=== PATIENT | female | born 1975 | race Caucasian/White ===

== ENCOUNTER 2024-12-05 14:15 | Emergency (ER) | payer MEDICAID, SELFPAY ==
--- NOTE | 2024-12-05 | XR_ITS ---
Examination: CT abdomen with intravenous contrast CT pelvis with intravenous contrast 2-D coronal reconstructions 2-D sagittal reconstructions Date and time of exam:December 12 at 1814 hrs. Indications: Rectal bleeding beginning 4 days ago. Comparison: 08/10/2024. CTDI: vol (mGy) 11.8 DLP: (mGycm) 661 Technique: Multiple axial sections of the abdomen and pelvis have been obtained. 64 slice high-resolution scanner used. 3 mm axial sections have been obtained, post intravenous injection 60 cc [id number] 2-D sagittal, coronal reconstructions obtained. Low dose protocols were performed. One or more of the following dose reduction techniques were used; automated exposure control, adjustment of the mA and/or KV according to patient size, use of iterative reconstruction technique. Findings: No focal liver or splenic lesion Absent gallbladder No pancreatic or adrenal mass Bilateral extrarenal pelvis, no hydronephrosis or ureteral calculi 4 mm fat-containing umbilical hernia Normal appendix No diverticulitis Nonspecific enteritis There is wall thickening and hyperemia involving the rectosigmoid colon, for instance axial image 181 as well as significant rectal thickening, nonspecific colitis and proctitis pattern The cervix, axial image 195, is abnormally prominent Urinary bladder contracted Moderate osteopenia Impression: Nonspecific significant colitis pattern rectosigmoid colon Prominent proctitis pattern, underlying rectal tumor not excluded, recommend direct inspection Abnormally prominent cervix, recommend transabdominal transvaginal pelvic sonography follow-up
[2024-12-05 14:17] VITALS: BMI 36.6
[2024-12-05 14:32] VITALS: BP 127/82; PULSE 114; RESP 20; TEMP 36.6; O2SAT 99
--- NOTE | 2024-12-05 14:40 | PD.EDRME ---
Rapid Medical Screening Exam RME Arrival date/time: 12/05/24 14:15 49-year-old female presents with complaints of rectal bleeding pt does have of hemorrhoids Chief Complaint: General Adult/Misc Complain Vital signs: Vital Signs Temperature 97.8 F 12/05/24 14:32 Pulse Rate 114 H 12/05/24 14:32 Respiratory Rate 20 12/05/24 14:32 Blood Pressure 127/82 12/05/24 14:32 Pulse Oximetry (%) 99 12/05/24 14:32 Oxygen Delivery Method Room Air 12/05/24 14:32
[2024-12-05 15:10] LABS: Collection Type, Urine Clean Catch
--- NOTE | 2024-12-05 15:12 | PD.EDADULT ---
ED General RME/HPI General Chief complaint: General Adult/Misc Complain Stated complaint: RECTAL PAIN AND BLEEDING Time Seen by Provider: 12/05/24 18:26 Arrival date/time: 12/05/24 14:15 RME / HPI RME / HPI narrative: 12/05/24 14:15 49-year-old female presents with complaints of rectal bleeding pt does have of hemorrhoids DR. IRBY MAIN ED EVALUATION: 49 year old female presents to the Emergency Department with complaint of rectal pain for 3 weeks and bleeding for 1 week. Symptoms are moderate. Just finished a 7-day hemorrhoid treatment. Denies any other symptoms at this time. Related Data Previous Rx's ?Medication ?Instructions ?Recorded docusate sodium 100 mg capsule 100 mg PO BID #40 caps 01/21/24 (Colace) hydrocodone 5 mg-acetaminophen 325 1 tab PO Q6H PRN pain (scale score 01/21/24 mg tablet 7-10) #20 tabs ibuprofen 600 mg tablet 600 mg PO Q8H PRN pain (scale 01/21/24 score 4-6) #15 tabs tamsulosin 0.4 mg capsule (Flomax) 0.4 mg PO QDAY #10 caps 08/10/24 hydrocortisone 1 %-pramoxine 1 % 1 applic UT QID PRN hemorrhoids 12/05/24 rectal foam (Proctofoam HC) #10 grams Allergies Allergy/AdvReac Type Severity Reaction Status Date / Time TAPES Allergy Severe Hives Uncoded 12/05/24 14:17 Review of Systems Review of Systems Systems Reviewed: All systems reviewed, normal except as documented Narrative Review of Systems: GEN: No fever, no chills, no weight loss EYES: No discharge, no visual changes, no pain HEENT: No ear pain, no congestion, no sore throat PULM: No shortness of breath, no cough, no congestion CV: No chest pain, no dyspnea on exertion, no palpitations GI: No nausea, no vomiting, no diarrhea, no pain, no constipation + rectal pain for 3 weeks and bleeding : No frequency, no urgency and no dysuria MUSC/SKEL: No joint pain, no back pain SKIN: No rash PSYCH: No hallucinations, no depression HEME/LYMPH: No easy bleeding or bruising tendencies NEURO: No weakness, no headache Past Medical History Past Medical History NEUROLOGIC: Negative Neurological Disorders, Seizures or Migraine CARDIAC: Negative Cardiac Disorders, Congestive Heart Failure or Hypertension RESPIRATORY: Negative Chronic Obstructive Pulmonary Disease (COPD) GASTROINTESTINAL: Positive Gastrointestinal Disorders, Hepatitis (C treated), Gastroesophageal Reflux Disease and Obesity; Negative Cirrhosis GENITOURINARY: Negative Genitourinary Disorders or Renal Disease REPRODUCTIVE: Positive Gonorrhea (clamydia) and Previous Pregnancies ([id number]) MUSCULOSKELETAL: Positive Musculoskeletal Disorders (bone spur right heel) and Fractures (collar bone) ENDOCRINE: Negative Endocrine Disorders, Diabetes Mellitus Type 1, Diabetes Mellitus Type 2 or Hypothyroidism HEMATOLOGIC: Negative Blood Disorders or Anemia PSYCHO/SOCIAL: Negative Depression or Anxiety OTHER HISTORY: Positive Hospitalization (staph infection,); Negative Autoimmune Disease, Shingles, Blood Transfusions, Blood Transfusion Reaction, Anesthesia Reactions, MRSA or Cancer Family History FAMILY HISTORY: Positive Family Respiratory Disorders, Family Cardiac Disorders and Family Surgery; Negative Family Psychiatric Problems, Family Gastrointestinal Problems, Family Cancer or Family Anesthesia Reaction Surgical History SURGICAL: Positive Lumpectomy (Right breast), Tubal Ligation and Section (x3) Social History SMOKING STATUS: Never smoker SUBSTANCE USE: does not use ALCOHOL: Never ED Exam Narrative Physical exam: GENERAL APPEARANCE: alert and oriented x 4, well-developed, well-nourished, no acute distress VITALS: All vitals were reviewed and the pulse ox is 99% on room air, which is normal according to my interpretation. HEENT: Normocephalic, atraumatic; pupils equal, round, reactive to light; EOMI; mucous membranes pink, moist; oropharynx clear NECK: Supple LUNGS: CTABL; no wheezes, no rales, no rhonchi HEART: Regular rate, regular rhythm; normal S1, S2; no murmurs ABDOMEN: non distended; normal BS; there is some tenderness in the left lower quadrant area, but no guarding, no rebound; no masses, no organomegaly, no hernia : External hemorrhoids, nonthrombosed; internal hemorrhoids, nonthrombosed; fissure at 12 o'clock. BACK: no CVA tenderness EXTREMITIES: atraumatic; no edema NEUROLOGIC: awake; alert and oriented x4; cranial nerves II-XII grossly intact; no focal sensory or motor deficits PSYCHIATRIC: appropriate mood and affect SKIN: warm, dry, normal color; no rashes Course Course Course Narrative: 1800: Patient was signed out to Dr. Conde. Past medical, surgical, social and family history reviewed. Vitals and home medications reviewed. Results and treatment plan discussed. They will assume the care of the patient at this time and will follow the patient, pending abdomen/pelvis CT, remainder of labs, and final disposition. Quality Measures none Orders Category Date Time Status CT Screening NOW Care 12/05/24 15:[address] abdomen pelvis w con Stat Exams 12/05/24 Completed CBC Stat Lab 12/05/24 14:49 Completed Comprehensive Metabolic Panel Stat Lab 12/05/24 14:49 Completed HCG Qualitative,Urine Stat Lab 12/05/24 15:02 Completed Lipase Stat Lab 12/05/24 14:49 Completed PT [Prothrombin Time with INR] Stat Lab 12/05/24 14:49 Completed PTT [Partial Thromboplastin Time] Stat Lab 12/05/24 14:49 Completed UA, C/S IF [Urinalysis, C/S if Indicated] Stat Lab 12/05/24 15:02 Completed Urine Culture Stat Lab 12/05/24 15:02 Received Lidocaine 5% Oint Med 12/05/24 15:51 Discontinued See Dose Instructions TOP X1 ONE Vital Signs Vital signs: Vital Signs Temperature 97.8 F 12/05/24 14:32 Pulse Rate 114 H 12/05/24 14:32 Respiratory Rate 20 12/05/24 14:32 Blood Pressure 127/82 12/05/24 14:32 Pulse Oximetry (%) 99 12/05/24 14:32 Oxygen Delivery Method Room Air 12/05/24 14:32 [facility] Patient data External records reviewed:: [facility] previous records (Reviewed last ED visit dated 08/10/24, discharged with the following: Acute flank pain) Clinical information provided by:: patient Social determinants that could affect healthcare access:: none Patient has the following chronic illnesses:: hemorrhoids, cholecystectomy (01/21/24) How is presenting disease/condition affected by chronic disease/condition?: exacerbated by Evaluation data The following diagnostics were reviewed and interpreted by me:: lab results Lab and/or radiology exams considered but not ordered:: none Interpretation Summary: pending results Medications Medications considered but not ordered:: none Medication administrations:: Medication Administration History Discontinued Medications Lidocaine (Lidocaine Oint 5% 30 Gm Tube) 0 gm TOP X1 ONE Stop: 12/05/24 15:52 Last Admin: 12/05/24 16:36 Dose: 1 applicatio Documented By: LESTER see above if any Consultations Consultation(s) initiated? (list below): No Diagnosis Differential Diagnosis ED Complaint MDM: hemorrhoids, anal fissures, abscess Most likely diagnosis given after review of the tests above:: No official diagnoses at this time, still pending diagnostic tests. Patient signout to the material handler 2nd shift provider. Admission Indicated Admission indicated?: not indicated Explain why admission is indicated or not indicated:: No final disposition plan at this time, still pending diagnostic tests. Patient signout to the material handler 2nd shift provider. Admission Request Was there a request for admission?: No Disposition Plan Disposition Plan: other (specify) (Patient signout to the material handler 2nd shift provider. ) Medical Decision Making MDM Narrative MDM Narrative: Brenda Hugo am scribing for and in the presence of Dr. Irby. Differential Diagnosis Differential Diagnosis: hemorrhoids, anal fissures, abscess Lab Data 12/05/24 14:49 12/05/24 14:49 Labs: Lab Results 12/05/24 12/05/24 Range/Units 14:49 15:02 WBC 11.9 H (3.6-11.0) Thou/mm3 RBC 5.35 H (4.00-5.20) Miln/mm3 Hgb 15.1 (12.0-16.0) g/dL Hct 43.7 (36.0-46.0) % MCV 82 (80-100) fL MCH 28.2 (25.0-35.0) pg MCHC 34.6 (31.0-37.0) g/dl RDW Std Deviation 37.6 (36.4-46.3) fL Plt Count 402 (140-440) Thou/mm3 Neut % (Auto) 64 (37-80) % Lymph % (Auto) 29 (10-50) % Harper % (Auto) 5 (0-12) % Eos % (Auto) 2 (0-10) % Baso % (Auto) 1 (0-2.5) % Neut # (Auto) 7.5 (1.8-7.7) Thou/mm3 Lymph # (Auto) 3.4 (1.0-4.8) Thou/mm3 Harper # (Auto) 0.6 (0.0-0.8) Thou/mm3 Eos # (Auto) 0.2 (0.0-0.5) Thou/mm3 Baso # (Auto) 0.1 (0.0-0.2) Thou/mm3 Immature Gran # (Auto) 0.04 H (0.00-0.00) Thou/mm3 Absolute Nucleated RBC 0.00 (0.00-0.00) Thou/mm3 Immature Gran % 0 (0-0) % Nucleated RBC % 0 (0) /100 WBC PT 11.3 (9.0-12.2) Seconds INR 1.0 (0.9-1.3) APTT 26.2 (22.0-36.0) Seconds Sodium 139 (136-145) mMol/L Potassium 4.1 (3.4-5.1) mMol/L Chloride 102 (98-107) mMol/L Carbon Dioxide 26.2 (20.0-31.0) mMol/L Anion Gap 11 (7-16) BUN 19 (9-23) mg/dL Creatinine 0.8 (0.6-1.3) mg/dL Estim Creat Clear Calc 90.1 (>60) mL/min eGFR > 60 (60 - ) See Note BUN/Creatinine Ratio 24 H (12-20) Ratio Glucose 88 (74-106) mg/dL Calculated Osmolality 278 (275-295) Calcium 10.3 (8.3-10.6) mg/dL Corrected Calcium 10.3 H (8.5-10.1) mg/dL Total Bilirubin 0.5 (0.3-1.2) mg/dL AST 21 (0-34) U/L ALT 27 (10-49) U/L Alkaline Phosphatase 81 (46-116) U/L Total Protein 8.0 (5.7-8.2) gm/dL Albumin 5.0 (3.5-5.0) gm/dL Globulin 3.0 (2.3-3.5) gm/dL Albumin/Globulin Ratio 1.7 (1.2-2.2) Lipase 48 (12-53) U/L Ur Collection Type Clean Catch Urine Color Lt-Yellow (Lt Yel-Yel) Urine Clarity Hazy (Clear/Hazy) Urine pH 6.0 (5.0-7.0) Ur Specific [place] 1.019 (1.001-1.035) Urine Protein Negative (Neg - Trace) Urine Glucose (UA) Negative (Negative) Urine Ketones Trace (Negative) Urine Blood 1+ A (Negative) Urine Nitrite Negative (Negative) Urine Bilirubin Negative (Negative) Urine Urobilinogen (Auto) Negative (0.0-1.0) mg/dL Ur Leukocyte Esterase Positive (Negative) Urine RBC 6 H (0-3) /hpf Urine WBC 19 H (0-5) /hpf Ur Squamous Epith Cells 1 (0-5) /hpf Urine Bacteria 1+ A (None) Ur Culture Indicated? Yes Urine HCG, Qual Negative Discharge Plan Plan Patient Disposition: HOME (Self Care) Prescriptions/Referrals Prescriptions/Med Rec: New Proctofoam HC 1-1 % foam 1 applic UT QID PRN (Reason: hemorrhoids) Qty: 10 0RF No Action tamsulosin [Flomax] 0.4 mg capsule 0.4 mg PO QDAY Qty: 10 0RF docusate sodium [Colace] 100 mg capsule 100 mg PO BID Qty: 40 0RF hydrocodone-acetaminophen 5-325 mg tablet 1 tab PO Q6H MDD 4 PRN (Reason: pain (scale score 7-10)) Qty: 20 0RF ibuprofen 600 mg tablet 600 mg PO Q8H PRN (Reason: pain (scale score 4-6)) Qty: 15 0RF Referrals: Carline Chu NP [Primary Care Provider] - In 1 week Problem List Clinical Impression: Acute proctitis, Hemorrhoids, internal Patient/Caregiver Discharge Instructions Education Materials: ED Hemorrhoids Additional Instructions: Follow-up with your GI provider in 1 week for reevaluation. You can return to the emergency department sooner symptoms worsen or if you notice any new, concerning issues. Print Language: Telugu Stand Alone Forms: Kassie Award Info., Patient Portal Info Letter
[2024-12-05 15:14] LABS: Basophils # (Auto) 0.1 Thou/mm3 (0.0-0.2); Basophils % (Auto) 1 % (0-2.5); Eosinophils # (Auto) 0.2 Thou/mm3 (0.0-0.5); Eosinophils % (Auto) 2 % (0-10); Hematocrit 43.7 % (36.0-46.0); Hemoglobin 15.1 g/dL (12.0-16.0); Immature Granulocytes % (Auto) 0 % (0-0); Immature Granulocytes Auto 0.04 Thou/mm3 (0.00-0.00); Lymphocytes # (Auto) 3.4 Thou/mm3 (1.0-4.8); Lymphocytes % (Auto) 29 % (10-50); Mean Corpuscular HGB Conc 34.6 g/dl (31.0-37.0); Mean Corpuscular Hemoglobin 28.2 pg (25.0-35.0); Mean Corpuscular Volume 82 fL (80-100); Monocytes # (Auto) 0.6 Thou/mm3 (0.0-0.8); Monocytes % (Auto) 5 % (0-12); Neutrophils # (Auto) 7.5 Thou/mm3 (1.8-7.7); Neutrophils % (Auto) 64 % (37-80); Nucleated Red Blood Cell % 0 /100 WBC (0); Platelet Count 402 Thou/mm3 (140-440); RDW Standard Deviation 37.6 fL (36.4-46.3); Red Blood Count 5.35 Miln/mm3 (4.00-5.20); White Blood Count 11.9 Thou/mm3 (3.6-11.0)
[2024-12-05 15:19] LABS: HCG Qualitative,Urine Negative
[2024-12-05 15:22] LABS: Bacteria,Urine 1+; Bilirubin,Urine Negative (Negative); Blood,Urine 1+ (Negative); Color,Urine Lt-Yellow (Lt Yel-Yel); Glucose, Urine Negative (Negative); Ketones,Urine Trace (Negative); Leukocyte Esterase,Urine Positive (Negative); Nitrite,Urine Negative (Negative); Protein,Urine Negative (Neg - Trace); RBC,Urine 6 /hpf (0-3); Specific Gravity,Urine 1.019 (1.001-1.035); Squamous Epithelial Cell,Urine 1 /hpf (0-5); Urobilinogen,Urine Negative mg/dL (0.0-1.0); WBC,Urine 19 /hpf (0-5)
[2024-12-05 15:23] LABS: Clarity,Urine Hazy (Clear/Hazy); Culture Indicated,Urine Yes
[2024-12-05 15:30] LABS: Partial Thromboplastin Time 26.2 Seconds (22.0-36.0); Prothrombin Time 11.3 Seconds (9.0-12.2)
[2024-12-05 15:34] LABS: Alanine Aminotransferase 27 U/L (10-49); Albumin/Globulin Ratio 1.7 (1.2-2.2); Alkaline Phosphatase 81 U/L (46-116); Anion Gap 11 (7-16); Aspartate Amino Transferase 21 U/L (0-34); BUN/Creatinine Ratio 24 Ratio (12-20); Bilirubin,Total 0.5 mg/dL (0.3-1.2); Blood Urea Nitrogen 19 mg/dL (9-23); Calcium 10.3 mg/dL (8.3-10.6); Calcium (Corrected) 10.3 mg/dL (8.5-10.1); Carbon Dioxide 26.2 mMol/L (20.0-31.0); Chloride 102 mMol/L (98-107); Creatinine (Component) 0.8 mg/dL (0.6-1.3); Estimated Creatinine Clearance 90.1 mL/min (>60); Glucose 88 mg/dL (74-106); Lipase 48 U/L (12-53); Osmolality,Calculated 278 (275-295); Potassium 4.1 mMol/L (3.4-5.1); Sodium 139 mMol/L (136-145); eGFR > 60 See Note
[2024-12-05 16:09] VITALS: BP 109/69; PULSE 80; RESP 17; TEMP 36.7; O2SAT 97
[2024-12-05] MEDS: LIDOCAINE 5% TOP (16:36)
--- NOTE | 2024-12-05 18:26 | PD.EDADDENDU ---
Emergency Room Addendum Addendum Narrative: 1800 care assumed by previous shift provider. Past medical, surgical, social and family history reviewed. Vitals and home medications reviewed. Results and treatment plan discussed. I will assume the care of the patient at this time and will follow the patient, pending final disposition. Sister reports having chronic rectal pain and recurrent rectal bleeding where last colonoscopy 3 years ago shows internal hemorrhoids. She has been having about a weeks worth of rectal pain and bleeding and has been started on Anusol suppositories by her primary care physician. She now comes to the emergency department due to worsening of the pain she feels sometimes radiates up to her left lower quadrant. She denies nausea or vomiting On examination patient is laying on the left lateral position (the position of comfort). She has a benign abdominal exam. Reviewed the CT findings consistent with proximal proctitis versus significant inflammation or internal hemorrhoids. At this point we will add steroids to her regimen with Proctofoam HC. Did recommend at this point given her CT findings and the amount of proctitis to contact her GI specialist for follow-up. As she is headed colonoscopy fairly recently, 3 years ago, it would be in consultation with a GI specialist as to whether or not she will need a repeat colonoscopy. There are no emergent conditions today, her vital signs are stable, hemoglobin is stable, and she is appropriate for outpatient follow-up.
[2024-12-05 18:27] VITALS: BP 106/75; PULSE 76; RESP 16; TEMP 36.9; O2SAT 96
[2024-12-05 20:00] VITALS: BP 108/75; PULSE 86; RESP 18; TEMP 36.6; O2SAT 100
--- NOTE | 2024-12-05 20:00 | PC.NURSE ---
First contact with pt in Room 7, pt in gown, connected to bedside soft tile setter, call light within reach. Pt's family member currently at bedside.
--- NOTE | 2024-12-05 20:10 | PC.NURSE ---
Dr. Conde at bedside evaluating pt.
[2024-12-05 20:26] VITALS: BP 131/82; PULSE 98; RESP 18; TEMP 36.6; O2SAT 98
[2024-12-05 20:31] VITALS: BP 131/82; PULSE 98; RESP 18; TEMP 36.6; O2SAT 98
== END 2024-12-05 20:31 | disposition home or self-care (01) ==
PROVIDERS: Nurse Practitioner Primary Care; Emergency Provider Emergency Medicine; PCP Nurse Practitioner Women's Health
DX: K62.5 Hemorrhage of anus and rectum (principal); K64.8 Other hemorrhoids
CPT/HCPCS: 36415; 74177; 80053; 81001; 81025; 83690; 85025; 85610; 85730; 87077; 87086; 87186; 99285; A4649; Q9967; A9270

== ENCOUNTER 2025-01-14 09:45 | Outpatient (AMB) | payer MEDICAID, SELFPAY ==
[2025-01-14 09:52] VITALS: BP 118/82; PULSE 113; RESP 18; TEMP 36.6; BMI 36.6
--- NOTE | 2025-01-14 09:52 | PD.GSCLVISIT ---
Vital Signs - [facility] 01/14/25 09:52 Height 1.57 m Height Method Stated Weight 90.974 kg Weight Measurement Method Standing Scale BMI 36.6 BP 118/82 Blood Pressure Source Automatic Cuff Blood Pressure Location Right Lower Arm Position Sitting Respiration 18 Pulse 113 H Temp 97.8 F Temp Source Temporal Artery Scan Med/Allergies Allergies & Medications Allergies TAPES Allergy (Severe, Uncoded 01/14/25 09:53) Hives Medication Reconciliation docusate sodium 100 mg capsule (Colace) 100 mg PO BID #40 caps 01/21/24 [Rx Confirmed 01/14/25] hydrocodone 5 mg-acetaminophen 325 mg tablet 1 tab PO Q6H PRN pain (scale score 7-10) #20 tabs 01/21/24 [Rx Confirmed 01/14/25] ibuprofen 600 mg tablet 600 mg PO Q8H PRN pain (scale score 4-6) #15 tabs 01/21/24 [Rx Confirmed 01/14/25] tamsulosin 0.4 mg capsule (Flomax) 0.4 mg PO QDAY #10 caps 08/10/24 [Rx Confirmed 01/14/25] hydrocortisone 1 %-pramoxine 1 % rectal foam (Proctofoam HC) 1 applic [place] QID PRN hemorrhoids #10 grams 12/05/24 [Rx Confirmed 01/14/25] MA Intake Visit Data Collection New Patient or Established: Established Patient (seen at [facility] within 3 years) Seen by Clinical Staff ONLY (RN/MA): No Reason for Visit:: referral for hemorrhoid Pain Present Currently: No Pain scale:: 0 Special Skills Officer Required: No PCP or OBGYN visit in last 3 months: Yes Hx Now: No Do You Feel Safe at Home: Yes Authorities Contacted: N/A Smoking Status Smoking Status: Former smoker Tobacco Use: Cigarette Are you interested in quitting?: Yes Would you like additional Smoking Cessation Counseling?: No Immunization / Flu Flu Vaccine in the Last 12 Months: Yes Flu Vaccine Exclusion Criteria: Already Received Past Medical History Past Medical History NEUROLOGIC: Negative Neurological Disorders, Seizures or Migraine CARDIAC: Positive Hypertension; Negative Cardiac Disorders or Congestive Heart Failure RESPIRATORY: Negative Chronic Obstructive Pulmonary Disease (COPD) or Asthma GASTROINTESTINAL: Positive Gastrointestinal Disorders, Hepatitis, Gastroesophageal Reflux Disease and Obesity; Negative Cirrhosis GENITOURINARY: Negative Genitourinary Disorders or Renal Disease REPRODUCTIVE: Positive Gonorrhea and Previous Pregnancies MUSCULOSKELETAL: Positive Fractures ENDOCRINE: Negative Endocrine Disorders, Diabetes Mellitus Type 1, Diabetes Mellitus Type 2 or Hypothyroidism HEMATOLOGIC: Negative Blood Disorders, Anemia or Sickle Cell Disease PSYCHO/SOCIAL: Negative Depression or Anxiety OTHER HISTORY: Positive Hospitalization; Negative Autoimmune Disease, Shingles, Blood Transfusions, Blood Transfusion Reaction, Anesthesia Reactions, MRSA or Cancer Family History FAMILY HISTORY: Positive Family Respiratory Disorders, Family Cardiac Disorders and Family Surgery; Negative Family Psychiatric Problems, Family Gastrointestinal Problems, Family Cancer or Family Anesthesia Reaction Surgical History SURGICAL: Positive Lumpectomy, Tubal Ligation and Section Social History SMOKING STATUS: Smoking status: Former smoker ALCOHOL: Alcohol Intake: Never HOUSING: Housing: House HPI HPI Narrative 49 year old female with pmh of HTN, Hepatitis C, hiatal hernia, and internal/external hemorrhoids presenting with rectal bleeding and prolapse for the past month. Patient states that last month she had a tremendous amount of inflammation in her anal area from an anal fissure and hemorrhoids. She was given treatment that helped resolve the anal fissures. However, she states that for the past month she experiences a protrusion between her vagina and anus while having a bowel movement. She states that this protrusion is very uncomfortable, but stops a while after completing the bowel movement. She denies constipation, diarrhea, weakness, dizziness, shortness of breath, and unexpected weight loss. She states that she does experience fatigue, but doesn't believe it is related to the hemorrhoids. She has previously tried suppositories, sitz baths, and increasing fiber intake to help with the hemorrhoids. She states that she doesn't experience much bleeding, but the prolapse is causing the most discomfort. She takes colace every so often to ensure that her bowel movements are smooth. She denies noticing if anything makes the hemorrhoids or the symptoms worsen. Pt underwent colonoscopy most recently in 2022 and was advised she had benign polyps ROS Review of Systems Systems Reviewed: All systems reviewed, normal except as documented Constitutional Constitutional: Reports fatigue, Denies fever(s), Denies weakness and Denies weight loss Cardiovascular Cardiovascular: Denies dyspnea Respiratory Respiratory: Denies dyspnea Gastrointestinal Gastrointestinal: Denies abdominal pain and Denies change in bowel habits Neurologic Neurologic: Denies weakness Endocrine Endocrine: Reports fatigue Objective/Exam General General Appearance: alert, cooperative and well groomed Resp Respiratory exam: Absent respiratory distress Rectal Rectal exam: Present hemorrhoids (internal and external ) and other (stool present in rectal canal ) Assessment & Plan Diagnosis / Problem List (1) Hemorrhoids: Assessment & Plan: 49 year old female presenting with internal and external hemorrhoids for the past few years. Both external and internal hemorrhoids were present on exam. Despite trying many different remedies, the patient is still experiencing symptoms. Plan: Patient is offered transanal hemorrhoidal dearterialization; we discussed benefits/risks including severe pain, difficulty urinating, infection, and hemorrhoid persistence/recurrence. All questions were answered and pt is agreeable to proceeding Office Procedures GNS Level of Care Nursing/Assessment Patient Status: Initial/New Patient Nursing Assessment/Reassesment: Medication Reconciliation, Update PMH in EMR and Vital Signs Coordination of Care: Complex Care and Chronic Disease 1-5, Consent,records obtained, informed consent, Education Simp Pt/Fam, Results/Orders obtained and Staff clarify orders New Patient Charge New Patient Point Assignment: 1089 New Patient Point Charge: JEWELRY DESIGNER Level 3 (0826-1049) Patient Portal Questionaires Social History Living Situation History Housing: House Tobacco History Smoking Status: Former smoker Alcohol History Alcohol Intake: Never Domestic Abuse History Do You Feel Safe at Home: Yes Review of Systems Report any current symptoms Only answer those that you have currently: General Complaints fatigue: Yes fever(s): No weakness: No weight loss: No Heart & Circulation shortness of breath: No Digestive System abdominal pain: No change in bowel habits: No Past Medical History Past Medical History Have you ever been diagnosed with any of the following: Neurological Problems Seizures: No Migraine: No Cardiology Problems Congestive Heart Failure: No Hypertension: Yes Respiratory Problems Chronic Obstructive Pulmonary Disease (COPD): No Asthma: No Stomache/Intestinal Problems Hepatitis: Yes Cirrhosis: No Gastroesophageal Reflux Disease: Yes Obesity: Yes Genital/Urinary Problems Renal Disease: No Reproductive Problems Gonorrhea: Yes Previous Pregnancies: Yes Musculoskeletal Problems Fractures: Yes Endocrine Problems Diabetes Mellitus Type 1: No Diabetes Mellitus Type 2: No Hypothyroidism: No Blood Problems Anemia: No Sickle Cell Disease: No Psychologic Problems Depression: No Anxiety: No Other Problems Hospitalization: Yes Autoimmune Disease: No Shingles: No Blood Transfusions: No Blood Transfusion Reaction: No Anesthesia Reactions: No MRSA: No Cancer: No
== END 2025-01-14 11:12 | disposition home or self-care (01) ==
LOC: HODSRG 09:45
PROVIDERS: PCP Nurse Practitioner Women's Health; Referring Provider Nurse Practitioner Women's Health; Supervising Provider Surgery; Visit Provider Surgery
DX: K64.8 Other hemorrhoids (principal); K64.4 Residual hemorrhoidal skin tags
CPT/HCPCS: 99203; G0463

== ENCOUNTER 2025-01-27 05:40 | Day surgery (SDC) | payer MEDICAID, SELFPAY ==
[2025-01-25 07:00] VITALS: BMI 36.9
--- NOTE | 2025-01-25 07:13 | EKG_ITS ---
[facility] Test Date: 2025-01-25 Pat Name: RASHAWN HERRERA Department: Room: - Gender: Female Physical Education Instructor: RTSJC : 1975 Requested By: Eris Mcclelland Order Number: [id number] Reading MD: Eris Mcclelland Measurements Intervals [place] Rate: 69 P: 19 [place]: 187 QRS: 16 QRSD: 87 T: 10 QT: 394 QTc: 423 Interpretive Statements SINUS RHYTHM LOW QRS VOLTAGE IN PRECORDIAL LEADS [QRS DEFLECTION < 1.0 mV IN CHEST LEADS] No previous ECG available for comparison /store/S0/[id number]
[2025-01-25 08:54] LABS: Basophils # (Auto) 0.1 Thou/mm3 (0.0-0.2); Basophils % (Auto) 1 % (0-2.5); Eosinophils # (Auto) 0.2 Thou/mm3 (0.0-0.5); Eosinophils % (Auto) 2 % (0-10); Hematocrit 42.5 % (36.0-46.0); Hemoglobin 14.4 g/dL (12.0-16.0); Immature Granulocytes % (Auto) 0 % (0-0); Immature Granulocytes Auto 0.04 Thou/mm3 (0.00-0.00); Lymphocytes # (Auto) 2.9 Thou/mm3 (1.0-4.8); Lymphocytes % (Auto) 28 % (10-50); Mean Corpuscular HGB Conc 33.9 g/dl (31.0-37.0); Mean Corpuscular Volume 86 fL (80-100); Monocytes # (Auto) 0.6 Thou/mm3 (0.0-0.8); Monocytes % (Auto) 6 % (0-12); Neutrophils # (Auto) 6.5 Thou/mm3 (1.8-7.7); Neutrophils % (Auto) 63 % (37-80); Nucleated Red Blood Cell % 0 /100 WBC (0); Platelet Count 349 Thou/mm3 (140-440); RDW Standard Deviation 38.6 fL (36.4-46.3); Red Blood Count 4.97 Miln/mm3 (4.00-5.20); White Blood Count 10.4 Thou/mm3 (3.6-11.0)
[2025-01-25 09:05] LABS: Partial Thromboplastin Time 24.2 Seconds (22.0-36.0); Prothrombin Time 10.8 Seconds (9.0-12.2)
[2025-01-25 09:12] LABS: Alanine Aminotransferase 17 U/L (10-49); Albumin, Serum 4.3 gm/dL (3.5-5.0); Albumin/Globulin Ratio 1.5 (1.2-2.2); Alkaline Phosphatase 82 U/L (46-116); Anion Gap 7 (7-16); Aspartate Amino Transferase 19 U/L (0-34); BUN/Creatinine Ratio 15 Ratio (12-20); Bilirubin,Total 0.3 mg/dL (0.3-1.2); Blood Urea Nitrogen 12 mg/dL (9-23); Calcium 9.6 mg/dL (8.3-10.6); Calcium (Corrected) 9.6 mg/dL (8.5-10.1); Carbon Dioxide 24.6 mMol/L (20.0-31.0); Chloride 107 mMol/L (98-107); Creatinine (Component) 0.8 mg/dL (0.6-1.3); Estimated Creatinine Clearance 90.6 mL/min (>60); Globulin 2.9 gm/dL (2.3-3.5); Glucose 93 mg/dL (74-106); Osmolality,Calculated 277 (275-295); Potassium 3.8 mMol/L (3.4-5.1); Sodium 139 mMol/L (136-145); Total Protein 7.2 gm/dL (5.7-8.2); eGFR > 60 See Note
[2025-01-27] VITALS (10 sets, daily range): BP systolic 104–134; BP diastolic 69–97; PULSE 80–97; RESP 12–18; TEMP 36.2–36.4; O2SAT 95–100; BMI 36.8
[2025-01-27] MEDS: RINGERS LACTATED 1000 ML 1,000 ML 20 ML IV (06:42)
--- NOTE | 2025-01-27 08:23 | ESOP_ITS ---
Date of Procedure 01/27/25 Pre Op Diagnosis Symptomatic internal and external hemorrhoids Post Op Diagnosis Same Procedure Transanal hemorrhoidal dearterialization Findings Internal and large external hemorrhoids Procedure Description After discussion of risks and benefits, patient was brought to the operating room, SCDs were placed and general anesthesia was induced. She was placed in lithotomy position with proper padding and was prepped and draped in the usual sterile fashion. After timeout a DENILSON was performed which showed normal s phincter tone and no masses. Transanal hemorrhoidal dearterialization was undertaken at the 1, 3, 5, 7, 9, and 11:00 positions. Due to external hemorrhoids, mucopexy was also performed at the 1, 3 and 9 positions. Left and right pudendal nerve blocks were performed as well as a local block for a total of 30 cc of half percent Marcaine. Patient was returned to supine position and extubated without complication. She was brought to PACU in stable condition Pathology / specimen None Estimated Blood Loss 25 Surgeon Theresa Ordoñez MD Surgical Staff Operation Date: 01/27/25 07:30 Case Staff Anesthesiologist: Eris Mcclelland
--- NOTE | 2025-01-27 08:26 | SUR.PHASEI ---
pt arrived to PACU via gurney drowsy but arouses to voice, breathing unlabored, dressing to buttocks clean, dry, and intact, report from Junior FREEDMAN and Dr Mcclelland
--- NOTE | 2025-01-27 08:26 | PD.SURDS ---
Planned Discharge Date 01/27/25 DS: Providers Provider Primary care physician: Austyn Kenny MD Attending Provider on Admission: Theresa Ordoñez MD Attending Provider on DC: Theresa Ordoñez MD Discharging Provider: Theresa Ordoñez MD Diagnosis Problem List Completed Was Problem List Reviewed/Reconciled?: Yes Exam Vital Signs Temp Pulse Resp BP Pulse Ox 97.6 F 80 14 115/72 95 01/27/25 06:30 01/27/25 06:30 01/27/25 06:30 01/27/25 06:30 01/27/25 06:30 Discharge Plan Plan Patient Disposition: HOME (Self Care) Prescriptions/Referrals Prescriptions/Med Rec: New oxycodone-acetaminophen [Percocet] 5-325 mg tablet 1 tab PO Q6H MDD 6 tabs PRN (Reason: pain) Qty: 30 0RF ibuprofen 600 mg tablet 600 mg PO Q6H PRN (Reason: pain) Qty: 30 0RF docusate sodium [Colace] 100 mg capsule 100 mg PO QDAY PRN (Reason: constipation) Qty: 30 0RF No Action omeprazole 20 mg capsule,delayed release(DR/EC) 20 mg PO BID lisinopril-hydrochlorothiazide 20-25 mg tablet 1 tab PO QDAY cholecalciferol (vitamin D3) [Vitamin D3] 125 mcg (5,000 unit) tablet 125 mcg PO QDAY Referrals: Austyn Kenny MD [Primary Care Provider] - Theresa Ordoñez MD [Physician] - (You will receive a phone call to confirm a follow-up appointment with me in 6 weeks) Patient/Caregiver Discharge Instructions Other Discharge Activity Instructions:: You may resume sitz baths as needed for pain, swelling and bleeding tomorrow 01/28 You may also resume any remedies you are using before for your hemorrhoids Avoid constipation and diarrhea If you develop pain that is not controlled with medications, fever, difficulty urinating or bleeding that does not stop please seek care in ER It will take several weeks for the swelling to improve Education Materials: Treating Hemorrhoids: Self-Care, Taking a Sitz Bath Print Language: Mongolian Stand Alone Forms: Kassie Award Info., Patient Portal Info Letter Discharge Order Discharge Orders: Discharge (Routine); Ordered 01/27/25 Ordered By: Theresa Ordoñez Results Results: Laboratory Laboratory results: results reviewed Procedures Procedure Date 01/27/25 Procedures Transanal hemorrhoidal dearterialization
[2025-01-27] MEDS: fentaNYL CIT INJ 50 mCg/ML AMP 2ML IV ×2 (08:39→08:44)
[2025-01-27] MEDS: HYDROcodone/APAP 5/325 TABLET 1 TAB PO (09:49)
--- NOTE | 2025-01-27 10:00 | SUR.PHASEII ---
pt awake, alert, able to follow commands, breathing unalbored, dressing to buttocks clean, dry, and intact, pt able to ambulate with steady gait to bathroom to urinate, discharge instructions given with spouse present-all questions answered and pt and spouse verbalize understanding of discharge instructions, pt discharged via wheelchair with all belongings and copies of discharge paperwork.
== END 2025-01-27 10:00 | disposition home or self-care (01) ==
PROVIDERS: Anesthesiology; PCP Family Medicine; Referring Provider Surgery; Visit Provider Surgery
PROC: (CPT 46948; principal; 2025-01-27 07:30)
DX: K64.4 Residual hemorrhoidal skin tags (principal); K64.8 Other hemorrhoids; Z01.810 Encounter for preprocedural cardiovascular examination; I10 Essential (primary) hypertension; K21.9 Gastro-esophageal reflux disease without esophagitis; E66.9 Obesity, unspecified; Z68.36 Body mass index [BMI] 36.0-36.9, adult
CPT/HCPCS: 46948; 36415; 80048; 80053; 85025; 85610; 85730; 93005; A4217; A4649; J1100; J2371; J2704; J2765; J3010; J3490; J7120; A9270

== ENCOUNTER 2025-02-01 10:49 | Outpatient (AMB) | payer MEDICAID, SELFPAY ==
[2025-02-01 11:04] VITALS: BP 114/84; PULSE 107; RESP 19; TEMP 36.4; O2SAT 99; BMI 36.1
--- NOTE | 2025-02-01 11:04 | PD.GSCLVISIT ---
Vital Signs - [facility] 02/01/25 11:04 Height 1.57 m Height Method Stated Weight 89.131 kg Weight Measurement Method Standing Scale BMI 36.1 BP 114/84 Blood Pressure Source Automatic Cuff Blood Pressure Location Left Upper Arm Position Sitting Respiration 19 Pulse 107 H Pulse Source Monitor Temp 97.6 F Temp Source Temporal Artery Scan Pulse Oximetry (%) 99 Oxygen Delivery Method Room Air Med/Allergies Allergies & Medications Allergies TAPES Allergy (Severe, Uncoded 02/01/25 11:04) Hives Medication Reconciliation cholecalciferol (vitamin D3) 125 mcg (5,000 unit) tablet (Vitamin D3) 125 mcg PO QDAY 01/25/25 [History Confirmed 02/01/25] lisinopril 20 mg-hydrochlorothiazide 25 mg tablet 1 tab PO QDAY 01/25/25 [History Confirmed 02/01/25] omeprazole 20 mg capsule,delayed release 20 mg PO BID 01/25/25 [History Confirmed 02/01/25] docusate sodium 100 mg capsule (Colace) 100 mg PO QDAY #30 caps 01/27/25 [Rx Confirmed 02/01/25] ibuprofen 600 mg tablet 600 mg PO Q6H PRN pain #30 tabs 01/27/25 [Rx Confirmed 02/01/25] oxycodone-acetaminophen 5 mg-325 mg tablet (Percocet) 1 tab PO Q6H PRN pain #30 tabs 01/27/25 [Rx Confirmed 02/01/25] nitrofurantoin monohydrate/macrocrystals 100 mg capsule (Macrobid) 100 mg PO Q12H 5 days #10 caps 02/01/25 [Rx] tamsulosin 0.4 mg capsule (Flomax) 0.4 mg PO QDAY #30 caps 02/01/25 [Rx] tramadol 50 mg tablet 50 mg PO Q6H PRN pain #30 tabs 02/01/25 [Rx] MA Intake Visit Data Collection New Patient or Established: Established Patient (seen at [facility] within 3 years) Seen by Clinical Staff ONLY (RN/NIC): No Reason for Visit:: THD F/U Pain Present Currently: Yes Pain Location: Unable to identify Pain scale:: 7 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 Discussed the benefits of quitting smoking with patient. Encouraged patient to quit smoking and provided Cessation assistance materials and resources. Tobacco Use: Cigarette Years smoked: 6 Are you interested in quitting?: No Immunization / Flu Flu Vaccine in the Last 12 Months: No Flu Vaccine Exclusion Criteria: No Exclusion Criteria Past Medical History Past Medical History NEUROLOGIC: Negative Neurological Disorders, Seizures or Migraine CARDIAC: Positive Cardiac Disorders and Hypertension; Negative Congestive Heart Failure RESPIRATORY: Negative Chronic Obstructive Pulmonary Disease (COPD) or Asthma GASTROINTESTINAL: Positive Gastrointestinal Disorders, Hepatitis (C, was treated), Hemorrhoids, Gastroesophageal Reflux Disease and Obesity; Negative Cirrhosis GENITOURINARY: Negative Genitourinary Disorders or Renal Disease REPRODUCTIVE: Positive Gonorrhea and Previous Pregnancies MUSCULOSKELETAL: Positive Fractures (collar bone) ENDOCRINE: Negative Endocrine Disorders, Diabetes Mellitus Type 1, Diabetes Mellitus Type 2 or Hypothyroidism HEMATOLOGIC: Negative Blood Disorders, Anemia or Sickle Cell Disease PSYCHO/SOCIAL: Negative Depression or Anxiety OTHER HISTORY: Positive Hospitalization and Chicken Pox; Negative Autoimmune Disease, Shingles, Blood Transfusions, Blood Transfusion Reaction, Anesthesia Reactions, MRSA or Cancer Family History FAMILY HISTORY: Positive Family Respiratory Disorders, Family Cardiac Disorders, Family Cancer and Family Surgery; Negative Family Psychiatric Problems, Family Gastrointestinal Problems or Family Anesthesia Reaction Surgical History SURGICAL: Positive Abdominal Surgery, Lumpectomy (Right), Tubal Ligation and Section (3) Social History SMOKING STATUS: Smoking status: Current every day smoker ALCOHOL: Alcohol Intake: Never HOUSING: Housing: House HPI HPI Narrative 49F s/p [facility] 01/27/25 here for follow up due to pain and dysuria. Pt reports she was taking norco at first but felt it was constipation so she has been taking only ibuprofen which helps, but this morning she noted a feeling of fullness in the perineal region and is having dysuria. Pt states she took flomax in the past but has not recently and feels that she may not be completely emptying her bladder. Pt states since stopping norco she has had BMs somewhat regularly which are soft and she is having minimal bleeding ROS Review of Systems Systems Reviewed: All systems reviewed, normal except as documented Objective/Exam General General Appearance: alert, cooperative and well groomed Resp Respiratory exam: Absent respiratory distress Assessment & Plan Diagnosis / Problem List (1) Hemorrhoid prolapse: Status: Acute Assessment & Plan: 49F s/p THD 01/27/25 with difficulty voiding and dysuria. I explained that flomax can help and will rx an antibiotic for UTI. I will also prescribe tramadol for pain. All questions were answered and pt will follow up in 5 weeks but sooner if needed Office Procedures GNS Level of Care Nursing/Assessment Patient Status: Established Patient Nursing Assessment/Reassesment: Medication Reconciliation, Update PMH in EMR and Vital Signs Coordination of Care: Complex Care and Chronic Disease 1-5, Consent,records obtained, informed consent, Education Simp Pt/Fam, Results/Orders obtained and Staff clarify orders Established Patient Charge Established Patient Point Assignment: 90 Established Patient Point Charge: EP Level 3 (80-115) Patient Portal Questionaires Social History Living Situation History Housing: House Tobacco History Smoking Status: Current every day smoker Alcohol History Alcohol Intake: Never Domestic Abuse History Do You Feel Safe at Home: Yes Review of Systems Report any current symptoms Only answer those that you have currently: Past Medical History Past Medical History Have you ever been diagnosed with any of the following: Neurological Problems Seizures: No Migraine: No Cardiology Problems Congestive Heart Failure: No Hypertension: Yes Respiratory Problems Chronic Obstructive Pulmonary Disease (COPD): No Asthma: No Stomache/Intestinal Problems Hepatitis: Yes (C, was treated) Cirrhosis: No Hemorrhoids: Yes Gastroesophageal Reflux Disease: Yes Obesity: Yes Genital/Urinary Problems Renal Disease: No Reproductive Problems Gonorrhea: Yes Previous Pregnancies: Yes Musculoskeletal Problems Fractures: Yes (collar bone) Endocrine Problems Diabetes Mellitus Type 1: No Diabetes Mellitus Type 2: No Hypothyroidism: No Blood Problems Anemia: No Sickle Cell Disease: No Psychologic Problems Depression: No Anxiety: No Other Problems Hospitalization: Yes Autoimmune Disease: No Shingles: No Blood Transfusions: No Blood Transfusion Reaction: No Anesthesia Reactions: No MRSA: No Chicken Pox: Yes Cancer: No
== END 2025-02-01 11:11 | disposition home or self-care (01) ==
LOC: HODSRG 10:49
PROVIDERS: PCP Family Medicine; Referring Provider Family Medicine; Supervising Provider Surgery; Visit Provider Surgery
DX: K64.8 Other hemorrhoids (principal); N39.0 Urinary tract infection, site not specified
CPT/HCPCS: 99213; G0463

== ENCOUNTER 2025-03-08 10:16 | Outpatient (AMB) | payer MEDICAID, SELFPAY ==
[2025-03-08 10:25] VITALS: BP 120/84; PULSE 85; RESP 19; TEMP 36.7; O2SAT 96; BMI 36.4
--- NOTE | 2025-03-08 10:25 | PD.GSCLVISIT ---
Vital Signs - [facility] 03/08/25 10:25 Height 1.57 m Height Method Stated Weight 89.925 kg Weight Measurement Method Standing Scale BMI 36.4 BP 120/84 Blood Pressure Source Automatic Cuff Blood Pressure Location Left Upper Arm Position Sitting Respiration 19 Pulse 85 Pulse Source Monitor Temp 98.1 F Temp Source Temporal Artery Scan Pulse Oximetry (%) 96 Oxygen Delivery Method Room Air Med/Allergies Allergies & Medications Allergies TAPES Allergy (Severe, Uncoded 03/08/25 10:26) Hives Medication Reconciliation cholecalciferol (vitamin D3) 125 mcg (5,000 unit) tablet (Vitamin D3) 125 mcg PO QDAY 01/25/25 [History Confirmed 03/08/25] lisinopril 20 mg-hydrochlorothiazide 25 mg tablet 1 tab PO QDAY 01/25/25 [History Confirmed 03/08/25] omeprazole 20 mg capsule,delayed release 20 mg PO BID 01/25/25 [History Confirmed 03/08/25] docusate sodium 100 mg capsule (Colace) 100 mg PO QDAY #30 caps 01/27/25 [Rx Confirmed 03/08/25] ibuprofen 600 mg tablet 600 mg PO Q6H PRN pain #30 tabs 01/27/25 [Rx Confirmed 03/08/25] oxycodone-acetaminophen 5 mg-325 mg tablet (Percocet) 1 tab PO Q6H PRN pain #30 tabs 01/27/25 [Rx Confirmed 03/08/25] tamsulosin 0.4 mg capsule (Flomax) 0.4 mg PO QDAY #30 caps 02/01/25 [Rx Confirmed 03/08/25] tramadol 50 mg tablet 50 mg PO Q6H PRN pain #30 tabs 02/01/25 [Rx Confirmed 03/08/25] MA Intake Visit Data Collection New Patient or Established: Established Patient (seen at [facility] within 3 years) Seen by Clinical Staff ONLY (RN/MA): No Reason for Visit:: THD Pain Present Currently: No PCP or OBGYN visit in last 3 months: Yes Hx Now: No Do You Feel Safe at Home: Yes Authorities Contacted: N/A Smoking Status Smoking Status: Current every day smoker Cessation Counseling Provided: RASHAWN was advised that quitting smoking is the single most important factor to protect the health of themselves and their family. Discussed the benefits of quitting smoking with patient. Encouraged patient to quit smoking and provided Cessation assistance materials and resources. Tobacco Use: Vapor Cigarette and Nicotine Years smoked: 10 Are you interested in quitting?: No Immunization / Flu Flu Vaccine in the Last 12 Months: No Flu Vaccine Exclusion Criteria: No Exclusion Criteria Past Medical History Past Medical History NEUROLOGIC: Negative Neurological Disorders, Seizures or Migraine CARDIAC: Positive Cardiac Disorders and Hypertension; Negative Congestive Heart Failure RESPIRATORY: Negative Chronic Obstructive Pulmonary Disease (COPD) or Asthma GASTROINTESTINAL: Positive Gastrointestinal Disorders, Hepatitis (C, was treated), Hemorrhoids, Gastroesophageal Reflux Disease and Obesity; Negative Cirrhosis GENITOURINARY: Negative Genitourinary Disorders or Renal Disease REPRODUCTIVE: Positive Gonorrhea and Previous Pregnancies MUSCULOSKELETAL: Positive Fractures (collar bone) ENDOCRINE: Negative Endocrine Disorders, Diabetes Mellitus Type 1, Diabetes Mellitus Type 2 or Hypothyroidism HEMATOLOGIC: Negative Blood Disorders, Anemia or Sickle Cell Disease PSYCHO/SOCIAL: Negative Depression or Anxiety OTHER HISTORY: Positive Hospitalization and Chicken Pox; Negative Autoimmune Disease, Shingles, Blood Transfusions, Blood Transfusion Reaction, Anesthesia Reactions, MRSA or Cancer Family History FAMILY HISTORY: Positive Family Respiratory Disorders, Family Cardiac Disorders, Family Cancer and Family Surgery; Negative Family Psychiatric Problems, Family Gastrointestinal Problems or Family Anesthesia Reaction Surgical History SURGICAL: Positive Abdominal Surgery, Lumpectomy (Right), Tubal Ligation and Section (3) Social History SMOKING STATUS: Smoking status: Current every day smoker ALCOHOL: Alcohol Intake: Never HOUSING: Housing: [facility] HPI Narrative 49F who presented with symptomatic hemorrhoids now s/p THD 01/27/25 here for planned follow up. Immediately postop pt was having symptoms of UTI which was treated with PO antibiotics; pt states at first she had diarrhea but that has since resolved and she continues to take stool softeners to have regular soft BMs without any straining. She is not currently having any pain, bleeding or itching, and feels that the swelling has gone down although has not fully resolved. She underwent colonoscopy last week without any issues and is not requiring any hemorrhoid treatments ROS Review of Systems Systems Reviewed: All systems reviewed, normal except as documented Objective/Exam General General Appearance: alert, cooperative and well groomed Resp Respiratory exam: Absent respiratory distress Assessment & Plan Diagnosis / Problem List (1) Hemorrhoid prolapse: Status: Acute Assessment & Plan: 49F s/p THD 01/27/25, recovering well Plan: Follow up as needed Office Procedures GNS Level of Care Nursing/Assessment Patient Status: Established Patient Nursing Assessment/Reassesment: Medication Reconciliation, Update PMH in EMR and Vital Signs Coordination of Care: Complex Care and Chronic Disease 1-5, Consent,records obtained, informed consent, Education Simp Pt/Fam, Results/Orders obtained and Staff clarify orders Established Patient Charge Established Patient Point Assignment: 90 Established Patient Point Charge: EP Level 3 (80-115) Patient Portal Questionaires Social History Living Situation History Housing: House Tobacco History Smoking Status: Current every day smoker Alcohol History Alcohol Intake: Never Domestic Abuse History Do You Feel Safe at Home: Yes Review of Systems Report any current symptoms Only answer those that you have currently: Past Medical History Past Medical History Have you ever been diagnosed with any of the following: Neurological Problems Seizures: No Migraine: No Cardiology Problems Congestive Heart Failure: No Hypertension: Yes Respiratory Problems Chronic Obstructive Pulmonary Disease (COPD): No Asthma: No Stomache/Intestinal Problems Hepatitis: Yes (C, was treated) Cirrhosis: No Hemorrhoids: Yes Gastroesophageal Reflux Disease: Yes Obesity: Yes Genital/Urinary Problems Renal Disease: No Reproductive Problems Gonorrhea: Yes Previous Pregnancies: Yes Musculoskeletal Problems Fractures: Yes (collar bone) Endocrine Problems Diabetes Mellitus Type 1: No Diabetes Mellitus Type 2: No Hypothyroidism: No Blood Problems Anemia: No Sickle Cell Disease: No Psychologic Problems Depression: No Anxiety: No Other Problems Hospitalization: Yes Autoimmune Disease: No Shingles: No Blood Transfusions: No Blood Transfusion Reaction: No Anesthesia Reactions: No MRSA: No Chicken Pox: Yes Cancer: No
== END 2025-03-08 10:43 | disposition home or self-care (01) ==
LOC: HODSRG 10:16
PROVIDERS: PCP Family Medicine; Referring Provider Family Medicine; Supervising Provider Surgery; Visit Provider Surgery
DX: K64.8 Other hemorrhoids (principal); I10 Essential (primary) hypertension; Z71.6 Tobacco abuse counseling; F17.290 Nicotine dependence, other tobacco product, uncomplicated
CPT/HCPCS: 99213; G0463